=== PATIENT | male | born 1970 | race Caucasian/White ===

== ENCOUNTER 2021-09-10 13:24 | Emergency (ER) | payer MEDICAID ==
[~2021-09-10] VITALS: Ht 182.9 cm; Wt 57.4 kg
[2021-09-10 13:26] VITALS: BP 187/118
[2021-09-10] MEDS ORDERED: TRIA15CR61 TP (13:34)
== END 2021-09-10 13:47 | disposition home or self-care (01) ==
LOC: ER 13:26
DX: L23.9 Allergic contact dermatitis, unspecified cause (principal); R21 Rash and other nonspecific skin eruption; Z72.89 Other problems related to lifestyle; Z59.00 Homelessness unspecified; Z79.899 Other long term (current) drug therapy
CPT/HCPCS: 99283